=== PATIENT | male | born 1980 | race Caucasian/White ===

== ENCOUNTER 2017-01-08 16:28 | Emergency (ER) | payer OTHER ==
[2017-01-08 16:52] VITALS: BP 114/76
[2017-01-08] MEDS: methylPREDNISolone ACETATE 80 MG/ML VIAL IM PRN (17:25)
--- NOTE | 2017-01-08 17:50 | ED Physician Documentation ---
Skin Rash - HISTORIAN Historian: patient - HPI Stated Complaint: rash on genitalia Chief Complaint: Skin Rash Additional Information: contact5 derm-poison lanette genital area after weed whipping and went to br w/o washing hands 4 days ago-topical tx not working Onset: days ago (4) Timing: still present Duration: persistent since Quality: itchy, painful, burning Identified Cause?: Yes Where: work Context: Medication Exposure: none Context: Food Exposure: none - ROS CONST: no problems CVS/RESP: none EYES/ENT: none GI/: none MS/SKIN/LYMPH: none NEURO/PSYCH: none - PAST HX Past History: other (anxiety) Other History: allergy to poison lanette Surgeries/Procedures: Yes (hernia) Allergies/Adverse Reactions: Allergies Allergy/AdvReac Type Severity Reaction Status Date / Time No Known Allergies Allergy Verified 01/08/17 16:53 Home Medications: Ambulatory Orders Medication Instructions Recorded Alprazolam [Xanax] 1 mg PO TID 01/08/17 Citalopram Hydrobromide [Celexa] 30 mg PO DAILY 01/08/17 Prednisone 10 mg PO TID #30 tablet 01/08/17 - SOCIAL HX Smoking History: cigarettes Alcohol Use: none Drug Use: none - FAMILY HX Family History: atopic allergy - VITAL SIGNS Vital Signs: Vital Signs Temp Pulse Resp BP Pulse Ox 98.6 F 73 20 114/76 97 01/08/17 16:29 01/08/17 16:29 01/08/17 16:29 01/08/17 16:29 01/08/17 16:29 - REVIEWED ASSESSMENTS Nursing Assessment Reviewed: Yes Vitals Reviewed: Yes ED Results Lab/Radiology - Orders Orders: ED Orders Category Date Time Status methylPREDNISolone ACETATE [Depo-Medrol] Med 01/08/17 17:20 Ordered 80 mg IM NOW PRN Skin Rash Physical Exam - EXAM General Appearance: mild distress Skin: warm,dry. No: cyanotic, diaphoretic, pallid, jaundiced Location: other (genital area only) Character: asymmetric, urticarial Symptoms: tenderness. No: lymphangitis Extremities: non-tender Neck: trachea midline Respiratory: no resp distress, chest non-tender, breath sounds normal CVS: reg. rate & rhythm, heart sounds nml Abdomen: non-tender, no distention. No: guarding Neuro/Psych: oriented x3, motor nml, sensation nml, mood/affect nml Discharge Clincal Impression: contact dermatitis-poison lanette Prescriptions: Prednisone 10 mg PO TID #30 tablet Referrals: Primary Doctor,No [Primary Care Provider] - 2 Days Condition: Good Disposition: 01 HOME, SELF-CARE Decision to Admit: NO Decision Time: 17:57
[2017-01-08] MEDS: methylPREDNISolone ACETATE 80 MG/ML VIAL IM ONE (18:05)
== END 2017-01-08 17:34 | disposition home or self-care (01) ==
LOC: ED 16:28
DX: L23.7 Allergic contact dermatitis due to plants, except food (principal)
CPT/HCPCS: 96372; 99283; J1040

== ENCOUNTER 2017-07-26 10:18 | Emergency (ER) | payer OTHER ==
[2017-07-26] MEDS ORDERED: methylPREDNISolone ACETATE 80 MG/ML VIAL IM ONE (10:35)
--- NOTE | 2017-07-26 10:36 | ED Physician Documentation ---
Skin Rash - HISTORIAN Historian: patient - HPI Chief Complaint: Skin Rash Onset: days ago (7) Location: RUE, LUE, RLE, LLE Quality: itchy Further Comments: yes (37 year old male patient presents with complaint of itchy rash for the past 7 days. Has been using calamine lotion, states rash is now spreading to arms.) - ROS CONST: none CVS/RESP: none EYES/ENT: none GI/: none MS/SKIN/LYMPH: none NEURO/PSYCH: none - PAST HX Past History: none Other History: none Allergies/Adverse Reactions: Allergies Allergy/AdvReac Type Severity Reaction Status Date / Time No Known Allergies Allergy Verified 07/26/17 10:27 Home Medications: Ambulatory Orders Medication Instructions Recorded Alprazolam [Xanax] 1 mg PO TID 01/08/17 - SOCIAL HX Smoking History: cigarettes - FAMILY HX Family History: denies: none - VITAL SIGNS Vital Signs: Vital Signs Temp Pulse Resp BP Pulse Ox 98.2 F 67 12 100/60 98 07/26/17 11:04 07/26/17 11:04 07/26/17 11:04 07/26/17 11:04 07/26/17 11:04 - REVIEWED ASSESSMENTS Nursing Assessment Reviewed: Yes Vitals Reviewed: Yes Progress - Progress Progress: Patient treated with depo medrol IM. ED Results Lab/Radiology - Orders Orders: ED Orders Category Date Time Status methylPREDNISolone ACETATE [Depo-Medrol] Med 07/26/17 10:35 Discontinued 80 mg IM NOW ONE Skin Rash Physical Exam - EXAM General Appearance: no acute distress, alert Skin: skin rash, erythema Location: extremities Character: maculopapular, other (linear rash noted on legs and arms bilateral; ) Extremities: non-tender, nml ROM, no edema Respiratory: no resp distress, chest non-tender, breath sounds normal CVS: reg. rate & rhythm, heart sounds nml Neuro/Psych: oriented x3, CN's nml as tested, motor nml, sensation nml, mood/ affect nml Discharge Clincal Impression: Poison lanette Referrals: Primary Doctor,No [Primary Care Provider] - 2 Days Additional Instructions: For Itch Relief: Adding oatmeal to a bath, applying cool wet compresses, and applying~calamine lotion~may help to relieve itching Condition: Stable Disposition: 01 HOME, SELF-CARE Decision to Admit: NO Decision Time: 10:36
[2017-07-26 11:07] VITALS: BP 100/60
== END 2017-07-26 11:00 | disposition home or self-care (01) ==
LOC: ED 10:18
DX: L23.7 Allergic contact dermatitis due to plants, except food (principal)
CPT/HCPCS: 96372; 99284; J1040